=== PATIENT | female | born 1995 | race Caucasian/White ===

== ENCOUNTER 2017-07-27 21:25 | Emergency (ER) | payer OTHER ==
[2017-07-27] MEDS ORDERED: Amoxicillin/Clavulanate TAB* 875 MG PO ONE (22:31)
--- NOTE | 2017-07-27 22:33 | ED ---
Bite Injury/Animal - HPI Summary HPI Summary: 22-year-old female presents with bite to left hand today. [facility] so she approached the family service aide. family service aide said could pet the dog and gave her a treat to give the dog. She states she went to pet the dog and the dog bit her left hand. She is not sure if dogs immunizations are up-to-date. Her last tetanus was less than 2 years ago. The area is not currently bleeding. She has no medical conditions. The dog was on a leash. She has full range of motion of her left hand. She is right-handed. - History of Current Complaint Chief Complaint: EDAnimalBite Stated Complaint: DOG BITE Time Seen by Provider: 07/27/17 21:59 Pain Intensity: 5 - Allergies/Home Medications Allergies/Adverse Reactions: Allergies Allergy/AdvReac Type Severity Reaction Status Date / Time No Known Allergies Allergy Verified 07/27/17 21:42 PMH/Surg Hx/FS Hx/Imm Hx Endocrine/Hematology History: Denies: Hx Anticoagulant Therapy Cardiovascular History: Denies: Hx Myocardial Infarction Infectious Disease History: No Infectious Disease History: Denies: Traveled Outside the [place] in Last 30 Days - Family History Known Family History: Negative: Diabetes - Social History Alcohol Use: Occasionally Substance Use Type: Reports: None Smoking Status (MU): Never Smoked Tobacco Review of Systems Negative: Fever Negative: Chest Pain Negative: Shortness Of Breath Positive: Other - bite left hand All Other Systems Reviewed And Are Negative: Yes Physical Exam Triage Information Reviewed: Yes Vital Signs On Initial Exam: Initial Vitals Temp Pulse Resp BP Pulse Ox 98.0 F 78 16 122/76 100 07/27/17 21:38 07/27/17 21:38 07/27/17 21:38 07/27/17 21:38 07/27/17 21:38 Vital Signs Reviewed: Yes Appearance: Positive: Well-Appearing Skin: Positive: Warm, Dry, Other - 1/4cm abrasion to left palm Head/Face: Positive: Normal Head/Face Inspection Eyes: Positive: Normal, Conjunctiva Clear ENT: Positive: Pharynx normal Respiratory/Lung Sounds: Positive: Clear to Auscultation, Breath Sounds Present Musculoskeletal: Positive: Strength/ROM Intact - left hand, Other - good pulses , capillary refill Neurological: Positive: Normal Psychiatric: Positive: Normal Diagnostics - Vital Signs Vital Signs Temp Pulse Resp BP Pulse Ox 07/27/17 21:38 98.0 F 78 16 122/76 100 - Laboratory Lab Statement: Any lab studies that have been ordered have been reviewed, and results considered in the medical decision making process. Bite Injury Course/Dx - Course Course Of Treatment: 22-year-old female presents with bite to left hand today. [facility] so she approached the family service aide. family service aide said could pet the dog and gave her a treat to give the dog. She states she went to pet the dog and the dog bit her left hand. She is not sure if dogs immunizations are up-to-date. Her last tetanus was less than 2 years ago. The area is not currently bleeding. She has no medical conditions. The dog was on a leash. She has full range of motion of her left hand. She is right-handed. On exam has 1/4centimeter abrasion noted to left hand. Full range of motion of hand. Neurovascular intact. Cleaned left hand. Will place on Augmentin. Told to keep area clean. Patient understands and agrees with plan. - Diagnoses Differential Diagnosis/HQI/PQRI: Positive: Crush Injury, Puncture, Rabies Exposure Provider Diagnosis: Dog bite Discharge - Sign-Out/Discharge Documenting (check all that apply): Discharge/Admit/Transfer - Discharge Plan Condition: Good Disposition: HOME Prescriptions: Amoxicillin/Clavulanate TAB* [Augmentin TAB 875*] 875 mg PO BID #9 tab Fluconazole 150 MG (NF) [Diflucan 150 mg (NF)] 150 mg PO ONCE #1 tab Patient Education Materials: Animal Bite (ED) Referrals: Non Staff,Doctor [Primary Care Provider] - Additional Instructions: Wash area with soap and water twice a day Place Neosporin on area Take augmentin twice a day for 5 days Return to ED if develop any sign of infection such as spreading redness, pus, or fever, or any new or worsening symptoms - Billing Disposition and Condition Condition: GOOD Disposition: HOME
[2017-07-27 22:49] VITALS: BP 124/71
== END 2017-07-27 22:48 | disposition home or self-care (01) ==
LOC: ED 21:25
DX: S61.452A Open bite of left hand, initial encounter (principal); W54.0XXA Bitten by dog, initial encounter; Y92.9 Unspecified place or not applicable
CPT/HCPCS: 99282; A9270-GY